=== PATIENT | female | born 1970 | race Caucasian/White ===

== ENCOUNTER 2025-01-03 02:07 | Day surgery (SDC) | payer OTHER, SELFPAY ==
[2024-12-26 15:07] VITALS: BMI 22.8
--- NOTE | 2024-12-26 15:25 | PC.NURSE ---
Report to the Outpatient Waiting Room, entrance under the green pavilion located off [facility], at time _0830 on date _01/03/25 . Planned Procedure Time: __1030 .? Time changes happen often and if your time is changed the preop area will call you the afternoon before. - You and your visitor will be asked to self-screen and do not enter if you have any COVID symptoms. Please call surgeon if you need to reschedule. - A mask is optional within the hospital at this time. Patients may have clear liquids (water, carbonated beverages, clear teas, apple juice) until 3 hours prior to surgery with a maximum of 20 ounces. - No food from midnight until time of surgery and no smoking, or chewing tobacco (or any form of nicotine). No chewing gum, candy or mints. - Infants may have breast milk until 4 hours before surgery, infant formula 6 hours prior to surgery. - Children will be allowed to drink immediately following surgery.? If applicable, please bring a bottle or sippy cup to assist with drinking. Juice, water, soda, and popsicles are readily available.? For infants on formula, please bring formula the day of surgery.? Pacifiers are allowed. Take only the following medications with a SIP of water on the morning of surgery: ___Tramadol, and Gabapentin DO NOT STOP ANY OF YOUR OTHER PRESCRIPTION MEDICATIONS PRIOR TO SURGERY EXCEPT THE FOLLOWING Hold all vitamins and supplements for 3 days per anesthesiologist. Medications to discontinue per physician Date to take last dose Please no make-up, nail mongolian, hairspray, perfume, deodorant, or body powder the day of surgery.? No jewelry (including any body piercings) or valuables the day of surgery, leave them at home.? Please take a shower or bath the night before, or the morning of, surgery with an antibacterial soap.? Wear comfortable, loose fitting clothing.? Children are encouraged to wear pajamas. - Jewelry must be removed prior to entering the operating room.? Rings and piercings that are not removed may be cut off. - The hospital will not accept responsibility for valuables.? - Please leave all valuables, including medications, at home the day of surgery. If you are going home after surgery, a licensed front loader residential driver must drive you home.? - NO public transportation without another adult if you receive anesthesia. - We recommend that an adult stay with you for 24 hours following discharge. - We also recommend that you do not drive, make important decision, drink alcoholic beverages, or take any drugs that were not prescribed by your health care provider for at least 24 hours after your discharge time. For Pediatric surgeries, we recommend two adults accompany the child home. Follow any additional instructions given to you from your surgeon. Telephone instructions given to _Ling and asked if any additional questions and then verbalized understanding. Patient advised to call surgeon office or pre surgery nurse liaison [phone] if any additional questions.
[2025-01-03] VITALS (14 sets, daily range): BP systolic 108–148; BP diastolic 45–83; PULSE 57–103; RESP 13–20; TEMP 35.8–36.3; O2SAT 95–100
--- OUTSIDE RECORDS SUMMARY | 2025-01-03 02:11 | XMS_ITS | Referral Summary ---
Author Organization [facility] Address [address] [place] [address] Care Team Providers Care Pattern Grader Supervisor Name Role Phone Leif DESIR MD, Law Ramos Primary Care Provider Allergies Active Allergy Reactions Criticality Noted Date Comments Celecoxib Anaphylaxis High 07/29/2021 Iodine Hives Medium 05/28/2022 Iodine And Iodide Containing Products Hives Medium 05/29/2020 Latex Anaphylaxis,Swelling High 04/30/2018 Prednisone Sweating,Agitation,A nxiety, Dizziness,Palpitations Low 02/06/2019 Shellfish Hives High 02/07/2020 Medications acetaminophen (TYLENOL) 500 mg tablet 8 Active traMADoL (ULTRAM) 50 mg tablet 0 Active zolpidem (AMBIEN) 10 mg tablet TK 1 T PO QHS PRF RN UNIT MANAGER 0 Active gabapentin (NEURONTIN) 400 mg capsule 2 Active ALPRAZolam (XANAX) 0.25 mg tablet 2 Active amoxicillin 500 mg tablet TAKE 4 TABLETS BY MOUTH 1 HOUR PRIOR TO APPOINTMENT 2 Active atorvastatin (LIPITOR) 10 mg tablet 2 Active clindamycin (CLEOCIN) 300 mg capsule TAKE ONE CAPSULE BY MOUTH FOUR TIMES DAILY FOR 7 DAYS 2 Active estradioL (VIVELLE-DOT) 0.1 mg/24 hr APPLY 1 PATCH TOPICALLY TO THE SKIN 2 TIMES A WEEK DIRECTED [address] (PROTONIX) 20 mg EC tablet Take 1 tablet (20 mg total) by mouth daily Active lidocaine (LIDODERM) 5 % Place 1 patch on the skin daily for 14 days Remove & discard patch within 12 hours or as directed by MD. 14 patch 4 Active methocarbamoL (ROBAXIN) 500 mg tablet Take 1 tablet (500 mg total) by mouth 2 (two) times a day 20 tablet 4 Active HYDROcodone-lilo taminophen (NORCO) 5-325 mg per tabletIndicatio ns:Pain Take 1 tablet by mouth every 6 (six) hours as needed for pain for up to 6 doses 6 tablet 4 Active Active Problems Problem Noted Date Diagnosed Date Mixed hyperlipidemia 08/11/2022 Family history of ischemic heart disease 023 Hematoma 08/11/2022 Left leg pain 10/21/2021 Disc displacement, lumbar 10/20/2021 Fixation hardware in spine 10/20/2021 History of total hip arthroplasty 10/20/2021 Hip pain 10/20/2021 Family history of Quijano syndrome 06/22/2020 Family history of breast cancer 06/22/2020 Personal history of colonic polyps 06/20/2020 Overview (06/20/2020): Added automatically from request for surgery [id number] Encounter for screening colonoscopy 06/20/2020 Overview (06/20/2020): Added automatically from request for surgery [id number] Bronchitis 07/19/2018 Low back pain 02/16/2018 Encounter for other orthopedic aftercare 018 Arthralgia of shoulder 03/07/2011 Arthralgia of elbow 03/07/2011 Immunizations Immunization Administration Dates Next Due H1N1 Inj 04/04/2009 Influenza, Quadrivalent, Rec ombinant, Egg Free, Preservative Free, Intramuscular 03/30/2020 Influenza, Quadrivalent, Spl it, Preservative Free, Intramuscular 03/29/2019,04/12/2018 Influenza, Trivalent, IM (MDV) 03/23/2019,2017 TD Preservative Free 12/05/2008 Social History Tobacco Use Types Packs/Day Years Used Date Smoking Tobacco: Former Cigarettes Smokeless Tobacco: Never Tobacco Cessation:Counseling Given: Not Answered Alcohol Use Standard Drinks/Week Comments Yes 0 (1 standard drink = 0.6 oz pur e alcohol) RARE Personal Safety Answer Date Recorded Have you ever been in or are you currently in a harmful physical or emotional relationship or is someone making you feel afraid or unsafe? Denies 01/05/2024 Comments No Sex and Gender Information Value Date Recorded Sex Assigned at Not on file Legal Sex Female 10:33 PM ANIMAL TRAINER Gender Identity Female 06/18/2020 7:08 PM ANIMAL TRAINER Sexual Orientation Not on file Last Filed Vital Signs Vital Sign Reading Time Taken Comments Blood Pressure 126/66 01/05/2024 12:15 PM CDT Pulse 80 01/05/2024 12:15 PM CDT Temperature 36.8 C (98.3 F) 01/05/2024 12:15 PM CDT Respiratory Rate 18 01/05/2024 12:15 PM CDT Oxygen Saturation 100% 01/05/2024 12:15 PM CDT Inhaled Oxygen Concentration - - Weight 59 kg (130 lb) 01/05/2024 9:26 AM CDT Height 160 cm (5' 3) 01/05/2024 9:26 AM CDT Body Mass Index 23.03 01/05/2024 9:26 AM CDT Plan of Treatment Not on file Insurance * Guarantor: Ling Olguin Account Type Relation to Patient Date of Phone Billing Address Personal/Family Self 1970 [address] [place] [address] [employer] [employer] * Guarantor: Sharif Ling Woo Account Type Relation to Patient Date of Phone Billing Address Personal/Family Self 1970 [id number] [place] [address] [facility] * Guarantor: Rosa Olguinleroy Woo Account Type Relation to Patient Date of Phone Billing Address Personal/Family Self 1970 [id number] [place] [address] Care Teams Pattern Grader Supervisor Relationship Specialty Start Date End Date Law Yadav II, MD [address] [place] [address] PCP - General 11/27/18
--- OUTSIDE RECORDS SUMMARY | 2025-01-03 02:11 | XMS_ITS | Clinical Summary ---
Author Organization [facility] Address [address] [place] [address] Phone Care Team Providers Care Ambulette Driver Name Role Phone Leif Parker Unavailable [phone] Leif Parker Primary Care Provider Allergies Active Allergy Reactions Criticality Noted Date Comments Avocado Anaphylaxis High 12/31/2022 Banana Anaphylaxis High 12/31/2022 Celecoxib Anaphylaxis 07/29/2021 Duloxetine Other (see Comments) Medium 06/19/2018 Iodine Hives High 05/29/2020 Latex Anaphylaxis 09/17/2016 Levofloxacin Other (see Comments) Medium 12/31/2022 Shellfish Allergy Hives 04/20/2021 Medications zolpidem (AMBIEN) 10 MG Tablet Take 1 Tab by mouth as needed. 2 8 Active traMADol (ULTRAM) 50 MG Tablet Patient takes 2 in morning and 2 in the afternoon 3 9 Active estradiol (VIVELLE) 0.1 MG/24HR PATCH BIWEEKLY APPLY 1 PATCH TOPICALLY TO THE SKIN 2 TIMES A WEEK DIRECTED 2 Active gabapentin (NEURONTIN) 300 MG Capsule 4 Active predniSONE (DELTASONE) 20 MG Tablet Take 2 tabs daily for 5 days. Intake 1 tab daily for 5 days. 4 Active Tretinoin 0.05 % Gel APPLY TOPICALLY NIGHTLY 0 Active EPINEPHrine (EPIPEN) 0.3 MG/0.3ML Solution Auto-injector 1 Syringe by Intramuscular route. 2 Active ALPRAZolam (XANAX) 0.25 MG Tablet Take 0.25 mg by mouth. 2 Active acetaminophen (TYLENOL) 500 MG Tablet Take 500 mg by mouth. 8 Active B Complex Vitamins (B COMPLEX PO) Take by mouth daily. Active VITAMIN D PO Take by mouth daily. Active Active Problems Problem Noted Date Diagnosed Date Hyperlipidemia 08/02/2022 Chronic back pain 08/02/2022 Chest pain 08/01/2022 Bronchitis 07/19/2018 Encounters Date Type Department Care Team Description 10/26/2024 8:55 AM CDT Urgent Care Visit [facility] [address] [place] [address] Jaycob Isabel, LARISSA Acute maxillary sinusitis, recurrence not specified (Primary Dx) Discharge Disposition: Discharged to home or Selfcare 10/26/2024 Travel from Last 3 Months Immunizations Immunization Administration Dates Next Due Influenza Vaccine greater than 3 yrs 03/23/2019 Influenza Vaccine, Quadrivalent, PF 03/29/2019 Influenza, Recombinant, Quadrivalent,injectable, Pf 03/30/2020 Influenza, Seasonal, Injectable, Undefined 04/08 Novel [id number], Injectable 04/04/2009 Td Vaccine (preservative free) 11/20/2023,2008 Family History Medical History Relation Name Comments Coronary Artery Disease Brother Cancer Mother Diabetes Natural Child Relation Name Status Comments Brother Mother Natural Child Social History Tobacco Use Types Packs/Day Years Used Date Smoking Tobacco: Never Smokeless Tobacco: Never Tobacco Cessation:Counseling Given: Not Answered Alcohol Use Standard Drinks/Week Comments Never 0 (1 standard drink = 0.6 oz pur e alcohol) Sexually Active Control Partners Comments Not Currently Comments No Sex and Gender Information Value Date Recorded Sex Assigned at Not on file Legal Sex Female 5:56 PM CDT Gender Identity Not on file Sexual Orientation Not on file Last Filed Vital Signs Vital Sign Reading Time Taken Comments Blood Pressure 128/68 10/26/2024 9:28 AM CDT Pulse 64 10/26/2024 9:28 AM CDT Temperature 36.5 C (97.7 F) 10/26/2024 9:28 AM CDT Respiratory Rate 12 10/26/2024 9:28 AM CDT Oxygen Saturation 99% 10/26/2024 9:28 AM CDT Inhaled Oxygen Concentration - - Weight 58.1 kg (128 lb) 12/01/2023 6:23 PM CDT Height 160 cm (5' 3) 11/22/2023 5:56 PM CDT Body Mass Index 22.67 11/22/2023 5:56 PM CDT Plan of Treatment Health Maintenance Due Date Last Done Comments Hepatitis C Virus (HCV) Screening 1970 TdaP Immunization 1970 Hepatitis B Immunization (1 of 3 - 19+ 3-dose series) 01/12/1987 Cologuard 01/12/2013 Colonoscopy 01/12/2013 Colorectal Cancer Screening 01/12/2013 Immunochemical Fecal Occult Blood 01/12/2013 Pneumococcal Immunization (50+ years) (1 of 1 - PCV) 01/12/2018 Zoster Immunization (1 of 2) 01/12/2018 SARS-COV-2 Immunization ( - season) 2024 Mammogram 09/07/2024 09/08/2023, 01/06/2018 Influenza Immunization (#1) 02/06/202503/09, 03/29/2019, 03/23/2019, Additional history exists Respiratory Syncytial Virus (RSV) Immunization (Adult) (1 - 1-dose 75+ series) 01/12/2043 DTaP/Tdap/Td Immunization Discontinued 11/20/2023, Human Papillomavirus (HPV) Immunization Aged Out No longer eligible based on patient's age to complete this topic Meningococcal Immunization (ACWY) Aged Out No longer eligible based on patient's age to complete this topic Rotavirus Immunization Aged Out No lo nger eligible based on patient's age to complete this topic Medical Devices Implanted Type Area Glaze Maker Device Identifier Shelf Expiration Date Model / Serial / Lot Device Clsr 70cm 6fr Angio-Seal Vip .035in Vasc Collagen Valuelink Gw Insertion Timo Cm - [id number] Implanted:Qty: 1 on 08/04/2022 by Diane Rabago MD at [facility] IMPLANT [employer] 01/05/2023 [id number] / [id number] / [id number] Insurance * Guarantor: Ling Olguin Account Type Relation to Patient Date of Phone Billing Address Personal/Family Self 1970 [id number] [place] [address] [facility] * Guarantor: Ling Olguin Account Type Relation to Patient Date of Phone Billing Address Personal/Family Self 1970 [id number] [place] [address] Advance Directives * Full Code (Latest Code Status on File) Date Activated Date Inactivated Comments 08/01/2022 7:20 PM 08/04/2022 8:23 PM CPR-Full Prince atment: FULL ARREST: Attempt Resuscitation/CPR wit intubation and mechanical ventilation. PRE-ARREST: Use entire range of life support measures to stabilize the patient. Care Teams Ambulette Driver Relationship Specialty [place] [address] [place] [address] PCP - General Physician Steel Worker 06/12/22 [place] [address] [place] [address] Physician Steel Worker 04/30/18
--- OUTSIDE RECORDS SUMMARY | 2025-01-03 02:11 | XMS_ITS | Encounter Summary ---
Author Organization [facility] Address [address] [place] [address] Care Team Providers Care Cryptological Technician Name Role Phone Leif DESIR MD, Law White Primary Care Provider + Encounter Details Date Type Department Care Team (Late st Contact Info) Description 11/28/2024 Results Follow-Up [facility]'s [facility] Clinical Support [address] [facility] [address] [place] [address] Manda Brito, BANK ACCOUNTANT [address] [address] MAMMO 3D EFRAIN DIAGNOSTIC IMPL BILAT W OR WO CAD Social History Tobacco Use Types Packs/Day Years Used Date Smoking Tobacco: Former Cigarettes Smokeless Tobacco: Never Alcohol Use Standard Drinks/Week Comments No 0 (1 standard drink = 0.6 oz pur e alcohol) Comments No Sex and Gender Information Value Date Recorded Sex Assigned at Not on file Legal Sex Female 8:56 AM ELECTROMYOGRAPHIC TECHNICIAN Gender Identity Not on file Sexual Orientation Not on file 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
--- OUTSIDE RECORDS SUMMARY | 2025-01-03 02:11 | XMS_ITS | Clinical Summary ---
Author Organization [employer] [facility] Address [address] [place], [place] [address] Care Team Providers Care Trolley Wire Installer Name Role Phone Leif DESIR MD, Law White Primary Care Provider + Allergies Active Allergy Reactions Criticality Noted Date Comments Avocado Anaphylaxis High 12/31/2022 Banana Anaphylaxis High 12/31/2022 Celecoxib Hives High Duloxetine Other (See Comments) Medium 06/19/2018 Iodine And Iodide Containing Products Hives High 05/29/2020 Latex Other (See Comments) Levofloxacin Hypertension Medium Prednisone Unknown 02/06/2019 Shellfish Containing Products Hives High 2018 Shellfish Derived Itching Low Medications zolpidem (AMBIEN) 10 mg tablet TK 1 T PO QHS 2 7 Active traMADol (ULTRAM) 50 mg tabletIndicati ons:Chronic pelvic pain in female Take 1 Tablet (50 mg) by mouth daily. 28 Tablet 9 Active gabapentin (NEURONTIN) 400 mg capsule Take 400 mg by mouth 4 times daily. Active acetaminophen (TYLENOL) 500 mg tablet Take 500 mg by mouth 2 times daily. Active IBUPROFEN ORAL Take by mouth. Active Tretinoin 0.05 % Gel Apply 0.05 Units to affected area daily at bedtime. 0 Active ALPRAZolam (XANAX) 0.25 mg tablet Take 1 Tablet by mouth 3 times daily as needed. 2 Active ergocalciferol , vitamin D2, (VITAMIN D ORAL) Take 1 Tablet by mouth daily. Active OTHER daily. tumeric Activ e vitamin B complex (VITAMINS B COMPLEX ORAL) Take 1 Tablet by mouth daily. Active conjugated estrogens (Premarin) 0.625 mg/gram vaginal creamIndicatio ns:Atrophic vaginitis 1/4 applicator per vagina qhs x 7 nights, then 3 times a week x 3 weeks, then twice weekly 42.5 Gram 3 5 Active estradioL (CLIMARA) 0.1 mg/24 hr patch Apply 1 Patch to skin as directed every 7 days. 24 Patch 2 5 Active estradioL (CLIMARA) 0.1 mg/24 hr patchIndicatio ns:Menopausal symptoms Apply 1 Patch to skin as directed every 7 days. 12 Patch 3 5 12/22/19 25 Discontinu ed(Alterna te therapy prescribed ) Active Problems Patient Care Coordination No te Formatting of this note migh t be different from the original. 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 Problem Noted Date Diagnosed Date Atrophic vaginitis 05/23/2021 Menopause 05/23/2021 Chronic left hip pain 01/11/2019 Chronic fatigue 12/24/2017 Chronic pelvic pain in female 06/04/2017 Overview (06/04/2017): Added automatically from request for surgery [id number] Resolved Problems Problem Noted Date Diagnosed Date Resolved Date Preop examination 10/27/2018 11/24/2018 Menopausal symptom 08/11/2018 5 Women's annual routine gynec ological examination 12/24/2017 08/11/2018 Ovarian mass 06/04/2017 09/13/2018 Overview (06/04/2017): Added automatically from request for surgery [id number] Pelvic adhesions 06/04/2017 11/24/2018 Overview (06/04/2017): Added automatically from request for surgery [id number] Pelvic pain in female 05/18/20172018 Encounters Date Type Department Care Team Description 12/21/2024 External Device Data STL ABSTRACTION Provider, Abstract 12/21/2024 Telephone [facility] Clinical Support [address] [place] [phone] Charley Liz, urban anthropologist Question 12/20/2024 External Device Data STL ABSTRACTION Provider, Abstract 12/07/[address] 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 - [address] [facility] [address] [facility] [address] [place] [phone] Yusra Duke MD 11/28/2024 9:23 AM CDT - 11/28/2024 11:59 PM CDT Hospital Encounter [facility] [place] [address] [place] [phone] Yusra Duke MD Discharge Disposition: Home or Self Care 11/28/2024 Results Follow-Up [facility] Clinical Support [id number] [place] [address] [address] [place] [phone] Manda Brito, BERNARD MAMMO 3D EFRAIN DIAGNOSTIC IMPL BILAT W OR WO CAD 11/22/2024 External Device Data STL ABSTRACTION Provider, Abstract 11/21/2024 Telephone [facility] Clinical Support [address] [facility] [address] [place] [phone] Yadira Bryant RN Needs Orders Written; Breast pain 11/08/2024 External Device Data STL ABSTRACTION Provider, Abstract 11/07/2024 9:40 AM CDT Office Visit 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 - [address] [facility] [address] [facility] [address] [place] [phone] Yusra Duke MD Women's annual routine gynecological examination (Primary Dx); Atrophic vaginitis; Menopausal symptoms; Encounter for screening mammogram for breast cancer; Colon cancer screening from Last 3 Months Family History Medical History Relation Name Comments High Cholesterol Father Hypertension Father Stroke Father Cancer Mother Breast Cancer Paternal Aunt Breast Cancer Paternal Grandmother Colon Cancer Neg Hx Ovarian Cancer Neg Hx Relation Name Status Comments Father Mother cervical cancer - spread to uterus and caused age 49 Paternal Aunt Paternal Grandmother Social History Tobacco Use Types Packs/Day Years Used Date Smoking Tobacco: Former Cigarettes Smokeless Tobacco: Never Tobacco Cessation:Counseling Given: Not Answered Alcohol Use Standard Drinks/Week Comments No 0 (1 standard drink = 0.6 oz pur e alcohol) Comments No Sex and Gender Information Value Date Recorded Sex Assigned at Not on file Legal Sex Female 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 Gender Identity Not on file Sexual Orientation Not on file 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 Not on file Not on file Last Filed Vital Signs Vital Sign Reading Time Taken Comments Blood Pressure 110/76 11/07/2024 10:00 AM CDT Pulse 69 11/07/2024 10:00 AM CDT Temperature 36.1 C (97 F) 12/19/2020 7:56 AM CDT Respiratory Rate 16 12/19/2020 8:10 AM CDT Oxygen Saturation 99% 11/07/2024 10:00 AM CDT Inhaled Oxygen Concentration - - Weight 56.7 kg (125 lb) 11/07/2024 10:00 AM CDT Height 157.5 cm (5' 2) 11/07/2024 10:00 AM CDT Body Mass Index 22.86 11/07/2024 10:00 AM CDT Plan of Treatment Health Maintenance Due Date Last Done Comments HEPATITIS B VACCINES (1 of 3 - 19+ 3-dose series) 01/12/1987 FIT-DNA Q 3 years 01/12/2013 FIT/FOBT Q 1 year 01/12/2013 Flex Sig/CT Colonography Q 5 years 01/12/2013 ZOSTER VACCINE (1 of 2) 01/12/2018 DTAP/TDAP/TD VACCINES (1 - Tdap) 11/21/2023 11/20/19 24, 12/05/2008 BREAST CANCER SCREENING 09/07/2024 09/08/19 24, 06/04/2021, 04/01/2019, Additional history exists INFLUENZA VACCINE (#1) 2025 0, 03/29/2019, 03/23/2019, Additional history exists COLORECTAL SCREENING 12/19/2030 12/19/2020, 12/20/19 Colorectal Cancer Screening 12/19/2030 Procedures Procedure Name Priority Date/Time Associated Diagnosis Comments MAMMO 3D EFRAIN DIAGNOSTIC IMPL BILAT W OR WO CAD Routine 11/28/2024 10:03 AM CDT Soreness breast History of breast implant MAMMO 3D EFRAIN DIAGNOSTIC BILAT W OR WO CAD Routine 09/08/2023 2:44 PM CDT COLONOSCOPY REPORT 12/19/2020 7: 54 AM CDT from Last 3 Months or Most Recently Relevant to Health Maintenance Results * MAMMO 3D EFRAIN DIAGNOSTIC IMPL BILAT W OR WO CAD (11/28/2024 10:03 AM CDT) Anatomical Region Laterality Modality Breast Bilateral Mammography 11/28/2024 10:0 5 AM CDT Impressions 11/28/2024 10:11 AM CDT IMPRESSION: 1. No suspicious mammographic abnormality in either breast. RECOMMENDATIONS: Continue annual screening mammography. DICTATION LOCATION: [facility] Narrative 11/28/2024 10:11 AM CDT BILATERAL DIGITAL DIAGNOSTIC MAMMOGRAM WITH TOMOSYNTHESIS DATE: 11/28/2024 10:06 AM HISTORY: Left breast pain. COMPARISON(S): 2023 BREAST COMPOSITION: The breasts are heterogeneously dense, which may obscure small masses. FINDINGS: Mammogram views include CC and MLO and implant displaced CC and MLO 3-D images. There is no suspicious mammographic abnormality in either breast. Results conveyed to the patient at the time of imaging. OVERALL FINAL ASSESSMENT: BI-RADS CATEGORY 2: Benign findings. us Yusra Duke MD MAMMO ORDERABLES Final Result * MAMMO 3D EFRAIN DIAGNOSTIC BILAT W OR WO CAD (09/08/2023 2:44 PM CDT) Anatomical Region Laterality Modality Breast Bilateral Mammography us Yusra Duke MD MAMMO ORDERABLES Final Result * COLONOSCOPY REPORT (12/19/2020 7:54 AM CDT) Narrative Procedure Note Linh Ron DO - 12/19/2020 7:53 AM CDT [facility] Endoscopy Patient Name: Ling Olguin Procedure Date: 12/19/2020 Date of : 1970 Attending MD: Linh Ron MD Procedure: Colonoscopy Indications: Screening for colorectal malignant neoplasm, Last colonoscopy was done 15 years ago Providers: Linh Ron MD Referring MD: Law Yadav Ii Medicines: Monitored Anesthesia Care Complications: No immediate complications. Procedure: Informed consent was obtained for the procedure, including moderate sedation after risks were discussed. Based on the pre-procedure assessment, including review of the patient's medical history, medications, allergies, and review of systems, the patient was deemed to be an appropriate candidate for sedation. A timeout was performed. Continuous ECG monitoring, pulse oximetry, blood pressure monitoring, and direct observation were performed. The Colonoscope was introduced through the anus and advanced to the cecum, identified by appendiceal orifice and ileocecal valve. The colonoscopy was performed without difficulty. The patient tolerated the procedure well. The quality of the bowel preparation was good. Estimated Blood Loss: Estimated blood loss: none. Estimated blood loss was minimal. Findings: The perianal examination was normal. A few diverticula were found in the sigmoid colon and descending colon. No additional abnormalities were found on retroflexion. Impression: - Diverticulosis in the sigmoid colon and in the descending colon. - No specimens collected. Recommendation: - High fiber diet. - Repeat colonoscopy in 10 years for screening purposes. Linh Ron MD 12/19/2020 7:53:19 AM This report has been signed electronically. Number of Addenda: [address]; [place] [address] Linh Ron DO GI PROCEDURE ORDERABLES Fin al Result from Last 3 Months or Most Recently Relevant to Health Maintenance Insurance BCBS OUT OF STATE Advance Directives For more information, please contact: [phone] * Full Code (Latest Code Status on File) Date Activated Date Inactivated Comments 12/19/2020 7:06 AM 12/19/2020 10:22 AM Care Teams Trolley Wire Installer Relationship Specialty Start Date End Date Law Yadav II, MD [address] [place] [phone] PCP - General Family Practice 09/13/18
--- OUTSIDE RECORDS SUMMARY | 2025-01-03 02:11 | XMS_ITS | Clinical Summary ---
Author Organization [facility] Address [address] [place] [address] [place] [address] Care Team Providers Care Reed Press Feeder Name Role Phone Leif DESIR MD, Law White Primary Care Provider + Source Comments [facility] [employer],non-owned Affiliates and Associated Physician Practices is amultiple site organization consisting of ambulatory clinics and hospital sitesin [place], [place], [place] and [place]. This disclosure is being madepursuant to the Care Everywhere program and may not contain all information available regarding this patient. Last updated 18.[facility] [employer] Allergies Active Allergy Reactions Criticality Noted Date Comments Avocado Anaphylaxis High 12/31/2022 Banana Anaphylaxis High 12/31/2022 Celecoxib Anaphylaxis,Urticaria High 07/29/2021 Duloxetine Headache Medium 06/19/2018 Food Anaphylaxis High 12/31/2022 Iodine Urticaria High 05/29/2020 Latex Anaphylaxis,Unknown,Other,Swelling High 0 09/17/2016 Levofloxacin Elevated Blood Pressure,Other Medium 12/07 Shellfish Urticaria High 11/05/2018 Shellfish Allergy Itching Low 12/31/2022 Medications * Be aware that medications may not be up to date on this document. Alwaysverify current medications with the patient. Multiple Vitamins-Minera ls (PRESERVISION AREDS 2 PO) Active Lutein-Zeaxanth in 15-4.75 MG CAPS Active loteprednol (Lotemax) 0.5 % ophthalmic suspension Instill 1 (one) drop into both eyes 2 times daily twice a day for 10 days then once a day for 10 days then stop 15 mL 11/05/2022 Active ALPRAZolam (Xanax) 0.25 MG tablet 12/29/2022 Active estradiol (Vivelle-Dot) 0.1 MG/24HR patch 12/30/2022 Active gabapentin (Neurontin) 100 MG capsule 11/30/2022 Active rOPINIRole (Requip) 0.25 MG tablet 12/25/2022 Active traMADol (Ultram) 50 MG tablet 12/24/2022 Active zolpidem (Ambien) 10 MG tablet 12/27/2022 Active Active Problems Problem Noted Date Diagnosed Date RLS (restless legs syndrome) 12/24/202206/2022 Overview (01/06/2023): Last Assessment & Plan: Requip 0.25 mg p.o. q.h.s. Left lumbar radiculopathy 11/05/20222022 Overview (11/05/2022): Last Assessment & Plan: Increase gabapentin to 400 mg 2 capsules 3 times per day. Mixed hyperlipidemia 08/11/2022 11/05/2022 Latex allergy 11/21/2021 01/06/2023 Overview (01/06/2023): Last Assessment & Plan: RF epi pen Fixation hardware in spine 10/20/202111/05 History of total hip arthroplasty 10/20/2021 11/05/2022 Overview (11/05/2022): Last Assessment & Plan: Complicated by chronic pain. Takes tramadol with improvement. Compliant. No problems with abuse. Will provide Tramadol refills per PCP Dr Law Yadav Will get her a second opinion however we have discussed that her pain may never fully resolve. Continue to stay thin and active. Disc displacement, lumbar 10/20/20212022 Personal history of colonic polyps 06/20/2020 Overview (03/09/2024): Added automatically from request for surgery [id number] [employer]MO Replacement Utility 03/09/2024 Chronic back pain 09/23/2018 11/05/2022 Overview (11/05/2022): Chronic low back pain with fusion at 2 levels 7 months ago. Has completed physical therapy. Appears to be complicated by chronic pelvic pain and possible adhesions. Last Assessment & Plan: Keep appointment with fine arts instructor and with neurosurgeon. Recommended a walking program. Menopausal symptom 08/11/2018 01/06/2023 Bronchitis 07/19/2018 01/06/2023 Acne 06/22/2018 01/06/2023 Chronic insomnia 06/22/2018 01/06/2023 Overview (01/06/2023): We discussed methods to improve sleep including but not limited to going to bed same time every night, avoiding TV/screen time 1 hr prior to sleep, avoidance of afternoon/evening caffeine. We discussed indications for sleep medications including controlled substances. We discussed medication compliance, random drug screening, avoidance of taking other's or sharing meds, using same pharmacy, no early refills and required routine office visits every 90 day. Last Assessment & Plan: Continue Ambien 10 mg p.o. q.h.s. Generalized anxiety disorder 06/22/201806/2022 Overview (01/06/2023): We discussed treatment options including benzos. Discussed risks/benefits of benzo therapy. We discussed importance of medication compliance, no early refills, sharing of medications, taking medications from others, and one pharmacy for all prescriptions. We discussed random drug screening and discontinuation of meds if any problems or drug screen abnormality Last Assessment & Plan: Continue Xanax p.r.n. Chronic fatigue 12/24/2017 01/06/2023 Arthralgia of shoulder 03/07/2011 3 Overview (11/05/2022): Last Assessment & Plan: Unchanged. Wants to consider dose reduction of neurontin due to brain fog. Dose reduce to 300 mg PO TID. 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 Gender Identity Not on file Sexual Orientation Not on file Plan of Treatment Health Maintenance Due Date Last Done Comments COLOGUARD (AGES 45-75) - COLON CA SCREENING 1970 COLON MONITORING 1970 COLONOSCOPY - COLON CA SCREENING 1970 CT COLONOGRAPHY - COLON CA SCREENING 1970 Colorectal Cancer Screening 1970 FIT - COLON CA SCREENING 1970 FLEX SIG - COLON CA SCREENING 1970 MAMMOGRAM 1970 HIV SCREENING 01/12/1983 HEPATITIS C SCREENING 01/08/1986 DTAP/TDAP/TD VACCINES (1 - Tdap) 01/12/1987 HEPATITIS B VACCINE (1 of 3 - 19+ 3-dose series) 01/12/1987 PAP SMEAR 01/12/1989 PNEUMOCOCCAL VACCINE 50+ (1 of 1 - PCV) 01/12/2018 ZOSTER VACCINE (1 of 2) 01/12/2018 COVID-19 VACCINE (1 - season) 2024 DEPRESSION SCREENING 06/08/2024 INFLUENZA VACCINE (#1) 2025 0, 03/29/2019, 03/23/2019, Additional history exists LIPID TESTING 08/03/2027 08/03/2022, 08/01/2022 HIB VACCINE Aged Out No longer eligi ble based on patient's age to complete this topic HPV VACCINE Aged Out No longer eligi ble based on patient's age to complete this topic MENINGOCOCCAL (Group B) VACCINE SHARED DECISION-MAKING Aged Out No longer eligible based on patient's age to complete this topic MENINGOCOCCAL GROUPS A/C/Y/W VACCINE Aged Out No longer eligible based on patient's age to complete this topic Insurance AETNA AETNA Care Teams Reed Press Feeder Relationship Specialty Start Date End Date Law Yadav II, MD [address] [place], [place] [phone] PCP - General 07/30/22
--- OUTSIDE RECORDS SUMMARY | 2025-01-03 02:11 | XMS_ITS | Continuity of Care Document ---
Author Organization [facility] Address [address] [place] [address] Phone Care Team Providers Care Customer Operations Associate Name Role Phone Matias Keller MD Unavailable Unavailable Allergies, Adverse Reactions, Alerts Substance Reaction Status Criticality latex swelling(not reported) Active No In formation hives(not reported)hives(not reported) Ac tive No Information Medications Medication Instructions Dosage Effective Dates (start - stop) Status Comments Ambien 10 mg tablet take 1 tablet by ora l route every day at bedtime 10 MG - Active gabapentin 400 mg capsule take 1 capsule by oral route 4 times every day 400 MG - Active tramadol 100 mg tablet - Active Tylenol Extra Strength 500 mg tablet take 2 tablet by oral route every 4 - 6 hours as needed not to exceed 8 tablets per 24hrs 1000 MG - Active Procedures Procedure Date OFFICE CONSULTATION Advance Directives Directive Yes / No Effective Date File Name No Information Encounters Encounter Description Practice Location Reason(s) For Visit Diagnoses Date Provider Providers Copied on Encounter [facility] , [address], [facility], [phone] [facility] Status post total hip replacement , leftHip pain Krishna Salcedo. [address] [facility] [address] [place], [place], [id number] . tel: [phone] [facility] , [address] [facility] [address], [facility], tel:[phone] [facility] Low back pain Krishna Salcedo. [address] [facility] [address] [place], [place], [id number] . tel: [phone] OFFICE CONSULTATION [facility] , [address], [place], [address], [place] [phone] [facility] LBP and left hip and leg pain (chief complaint) Status post total hip replacement , leftLow back painLeft leg pain Krishna Salcedo. [address], [place], [place], [id number] . tel: [phone] Referring Provider: Law White, [address] [place], [address]. tel:[phone] Family History Family Member Type Diagnosis Age At Onset mother Problem Cancer, Lung Cancer father Problem prostate cancer son Problem Diabetes mellitus father Problem hypertension father Problem stroke mother Problem malignant neoplasm of cervix uteri Payers Payer name Insurance type Covered libertarian ID Authoriza tion(s) [facility] Choice/Choice Plus E2 OT [id number] Social History Type Description Quantity Date Captured Comments Alcohol Use Details Unknown Caffeine Use Details Unknown Tobacco Use Status Smoking Status No Information Sex Female Chief Complaint And Reason For Visit No Information Reason For Referral Reason For Referral No Information History Of Present Illness Encounter Date Complaint History Of Prese nt Illness LBP and left hip and leg pain Functional Status Date Functional Assessmen t No Information Instructions Date Instruction Additional Infor mation No Information Assessments Type Assessment Date assessment Status post total hip replacemen t, left assessment Hip pain Patient Care Teams Name Effective Dates (start - stop) Status Members No Information
--- OUTSIDE RECORDS SUMMARY | 2025-01-03 02:11 | XMS_ITS ---
Author Name Auto Generated, Auto Generated Organization [facility] ice Address [address] [place] [address] Phone [phone] Care Team Providers Care Addiction Medicine Physician Name Role Phone Lorie Doyle Unavailable Fan Anglin Unavailable [phone] Functional Status No Results Mental Status No Results Allergies and Intolerances Name Onset Date Reaction Severity Latex (Allergy) ThuFeb 16 14:50:00 EDT 2017 Dermatiti s Moderate Shellfish (Allergy) ThuFeb 16 14:50:00 EDT 2017 Hives Severe Medications Medication Directions Start Date End Date ketorolac 30 mg/mL injection solution 30 mg VIAL (ML) Intravenous 1 Time Daily for 1 Day ThuFeb 17 01:00:00 EDT 2017Feb 17 01:00:00 EDT 2017 bisacodyl 10 mg rectal suppository 1 SUPPOSITORY, RECTAL Rectal 1 Time Daily for 1 Day constipation ThuFeb 16 01:00:00 EDT 2017Feb 17 00:59:00 EDT 2017 Dulcolax (bisacodyl) 10 mg rectal suppository 1 SUPPOSITORY, RECTAL Rectal Every 6 Hours for 1 Day constipation ThuFeb 17 01:00:00 EDT 2017Feb 17 01:00:00 ED2017 morphine 10 mg/10 mL (1 mg/mL) in 0.9 % sodium chloride IV syringe 5-10mg SYRINGE (ML) Intramuscular PRN Every 4 Hours pain ThuFeb 16 16:00:00 EDT 2017Feb 17 01:00:00 EDT 2017 HYDROcodone 5 mg-acetaminophen 325 mg tablet 1-2 tabs TABLET Oral PRN Every 4 Hours pain ThuFeb 16 16:00:00 EDT 2017Feb 17 01:00:00 EDT 2017 vancomycin 1 gram/100 mL in 0.9 % sodium chloride intravenous solution 1gm PLASTIC BAG, INJECTION (ML) Intravenous 2 Times Daily for 1 Day [facility] 16:00:00 EDT 2017 Sep 12 :00:00 EDT 2017 Pepcid 20 mg tablet 1 tablet TABLET Oral 2 Times Daily for 1 Day acid reflux [facility] 16:00:00 EDT 2017 Sep 12 :00:00 EDT 2017 Tylenol Extra Strength 500 mg tablet 2 tabs TABLET Oral PRN Every 6 Hours elevated temp [facility] 16:00:00 EDT 2017 [facility] Sep 12 :00:00 EDT 2017 Benadryl 25 mg capsule 2 tabs CAPSULE Or al PRN Every 6 Hours as needed for itching. [facility] 16:00:00 EDT 2017 Sep 12 :00:00 EDT 2017 Zofran 2 mg/mL intravenous solution 4mg VIAL (ML) Intravenous PRN Every 4 Hours nausea [facility] 16:00:00 EDT 2017 [facility] Sep 12 :00:00 EDT 2017 Flexeril 10 mg tablet 1 tab TABLET Oral PRN 3 Times Daily spasms [facility] 16:00:00 EDT 2017 [facility] Sep 12 :00:00 EDT 2017 Milk of Magnesia 400 mg/5 mL oral suspension 30cc SUSPENSION, ORAL (FINAL DOSE FORM) Oral PRN Hour Of Sleep constipation [facility] 16:00:00 EDT 2017 [facility] Sep 12 :00:00 EDT 2017 Problems Active Concerns * Encounter for other orthopedic aftercare* Code: * Start Date: ThuFeb 16:00:00 EDT 2017 * End Date: * Text: * Low back pain* Code: * Start Date: ThuFeb 16:00:00 EDT 2017 * End Date: * Text: Reason for Referral Past Medical History
--- OUTSIDE RECORDS SUMMARY | 2025-01-03 02:11 | XMS_ITS | Clinical Summary ---
Author Organization [facility] Address [address] [place] [address] Care Team Providers Care Clinic Lpn Name Role Phone Leif DESIR MD, Law [...] tablet TK 1 T PO QHS PRF NURSERYPERSON 0 Active gabapentin (NEURONTIN) 400 mg capsule [...] (06/20/2020): Added automatically from request for surgery [id number] Encounter for screening colonoscopy 06/20/2020 Overview (06/20/2020): Added automatically from request for surgery [id number] Bronchitis 07/19/2018 Low back pain 02/16/2018 Encounter for other orthopedic aftercare 018 Arthralgia of shoulder 03/07/2011 Arthralgia of elbow 03/07/2011 Immunizations Immunization Administration Dates Next Due H1N1 Inj 04/04/2009 Influenza, Quadrivalent, Rec ombinant, Egg Free, Preservative Free, Intramuscular 03/30/2020 Influenza, Quadrivalent, Spl it, Preservative Free, Intramuscular 03/29/2019,04/12/2018 Influenza, Trivalent, IM (MDV) 03/23/2019,2017 TD Preservative Free 12/05/2008 Surgical History Surgery Date Site/Laterality Comments REPLACEMENT DISC ANTERIOR LUMBAR SPINE 02/06/2018 - 03/07 ABDOMINAL SURGERY 11/06/2018 - 12/05/2018 TOTAL HIP ARTHROPLASTY 06/08/2019 - 07/08/2019 Left Family History Medical History Relation Name Comments Hypertension Father Stroke Father Cancer Mother Cancer Sister Diabetes Son Relation Name Status Comments Father Mother Sister Son Social History Tobacco Use Types Packs/Day Years [...] on file 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 Gender Identity Female 06/18/2020 7:08 PM WEATHER ANCHOR Sexual Orientation Not on file Obstetrics History Last Filed Vital Signs Vital Sign Reading [...] 01/05/2024 9:26 AM CDT Plan of Treatment Health Maintenance Due Date Last Done Comments Colon Cancer Screening-Colonoscopy 1970 Depression Screening 1970 Hepatitis C Screening 1970 Hepatitis B Screening 01/12/1986 Regular Well Visit/Exam 18-64 01/12/1986 Zoster Vaccine (1 of 2) 01/12/2018 Breast Cancer Screening-Mammogram 01/06/2019 01/06/2018 DTaP/Tdap/Td Vaccine (1 - Tdap) 11/21/2023 11/20/2023, 12/05/2008 Influenza Vaccine (#1) 2025 , 03/29/2019, 03/23/2019, Additional history exists Pneumococcal vaccine <65 Aged Out No longer eligible based on patient's age to complete this topic Insurance [facility] * Guarantor: Ling Olguin Account Type Relation to Patient Date of Phone Billing Address Personal/Family Self 1970 [address] [place] [address] [facility] * Guarantor: Ling Olguin Account Type Relation to Patient Date of Phone Billing Address Personal/Family Self 1970 [id number] [place] [address] [facility] Care Teams Clinic Lpn Relationship Specialty Start Date End Date Law Yadav II, MD [address] [place] [address] PCP - General 11/27/18
[2025-01-03] MEDS: TRANEXAMIC ACID 1,000MG/ISO100 1,000 MG/100 ML BAG 200 MG IVPB (09:30)
--- NOTE | 2025-01-03 09:54 | WPDHPUPDATE1 ---
History and Physical Update Update Date/Time: 01/03/25 09:54 History and Physical has been reviewed, including an updated exam of the patient. There are NO changes in the patient's condition. Risks, benefits, and alternatives have been discussed and questions answered. Patient agrees to proceed with procedure.
--- NOTE | 2025-01-03 09:54 | W.PM.PROC2 ---
Procedure Note - Detailed Date of Procedure 01/03/25 Pre-op Diagnosis bilateral implant rupture Post-op Diagnosis Same Procedure Performed Bilateral breast implant removal with mastopexy Surgeon Yan Roche MD Anesthesia General Findings Inverted T Superior pedicle Old implants: Description of Procedure She is here today for the above. Previously and again today the risks, benefits, alternatives were discussed in extensive detail. I wanted her to be very realistic about the risks involved as well as expectations. Again today while marking we discussed the complexity of removal / mastopexy and need for revision procedures in the future. We also discussed how her previous mastopexy increases risks of complications which was outlined in detail. She has a significant IMF discrepancy which was outlined and explained the complexity of this as well. We discussed aftercare and what to monitor for. Made sure answered all of her questions to her satisfaction today and consent was obtained. Marked in the preoperative holding area with her verification. The patient was taken to the operating room placed supine on the operating table. Anesthesia was provided by anesthesiology. A surgical time-out was taken. She was prepped and draped in a standard sterile fashion. Eleven blade was utilized to make a stab incision and infiltrated with low volume tumescent solution as a field block. Ten blade used to excise along previous scar. Dissection was continued down to the capsules identified it is an elevated above the capsule for majority of the capsule. At this point the implant and the capsule were removed. Capsule sent to pathology. I tailor tacked the breast into position. Placed her in a sitting position. Verified the nipple-areolar location based on preoperative planning as well as intraoperative observations and measurements in full agreement. She was placed supine. I de-epithelialized the pedicle. I then de-epithelialized the inferior breast tissue to create an autoaugmentation flap based on intercostal security public safety officer. I elevated medial and lateral tissue flaps as well for planned closure. The autoaugmentation flap was sutured to the chest wall with 2-0 PDS. I closed along the IMF with 2-0 Stratafix. Along the vertical with 2-0 PDS. I closed around the areola with 3-0 stratafix. 3-0 Monocryl along the vertical. 3-0 Stratafix along the IMF. I finally closed everything with running subcuticular 4-0 Monocryl and tissue glue. Brijjits were utilized for the vertical incision. Fluffs and surgical bra were placed. Estimated Blood Loss 30 Drains No Packing No Pathology Yes (Bilateral breast capsules) Complications No immediate complications Condition Stable Disposition PACU
--- NOTE | 2025-01-03 09:57 | P.PNAN_ITS ---
Anes - Initial Pre Proc Eval Procedure: Operation Date: 01/03/25 10:30 Proposed Procedures p Bilateral Breast Implant Removal, - Yan Roche MD s Bilateral Breast Mastopexy, Capsulectomy - Yan Roche MD Date/Time: 01/03/25 09:57 Surgeon: Yan Roche MD Pre Op Diagnosis: bilateral implant rupture Patient Data Age: 54 Gender: F Height: 1.57 m Weight: 57.6 kg Last Vital Signs Temp 35.8 C L 01/03/25 09:30 Pulse 57 L 01/03/25 09:30 Resp 16 01/03/25 09:30 BP 108/45 L 01/03/25 09:30 Pulse Ox 100 01/03/25 09:30 O2 Del Method Room Air 01/03/25 09:30 Allergies Allergy/AdvReac Type Severity Reaction Status Date / Time avocado Allergy Severe Hives Verified 01/02/25 13:27 latex Allergy Severe Anaphylaxis Verified 01/02/25 13:27 banana Allergy Intermediate Swelling Verified 01/02/25 13:27 of Lip/Tongue/Throat celecoxib (From Celebrex) Allergy Intermediate Hives Verified 01/02/25 13:27 kiwi Allergy Intermediate Hives Verified 01/02/25 13:27 shellfish derived Allergy Intermediate Hives Verified 01/02/25 13:27 Home Medications ?Medication ?Instructions ?Recorded ?Confirmed ?Type cholecalciferol (vitamin D3) 125 125 mcg PO DAILY 12/26/24 12/26/24 History mcg (5,000 unit) tablet (Vitamin D3) estradiol 0.1 mg/24 hr semiweekly 1 patch topical WEEKLY 12/26/24 12/26/24 History transdermal patch gabapentin 100 mg capsule See Rx Instructions .Route .COMPLEX 12/26/24 12/26/24 History lactobacillus combination no.4 3 3,000 mmu cells PO DAILY 12/26/24 12/26/24 History billion cell capsule (Probiotic) tramadol 50 mg tablet 100 mg PO BID 12/26/24 12/26/24 History vitamin B complex 1 cap PO DAILY 12/26/24 12/26/24 History zolpidem 10 mg tablet (Ambien) 10 mg PO HS PRN sleep 12/26/24 12/26/24 History Laboratory Tests 01/03/25 08:54 Cotinine Negative Patient hx anesthesia problems: none Family hx anesthesia problems: none Results Review: All pre-operative results and documents have been reviewed as part of the pre- operative evaluation. [facility], [facility] Social History Social History Years smoked: 6 Smoking status: Former smoker Tobacco type: cigarettes Smoking end date: 06/08/95 Alcohol intake: never Living arrangements: with family Spiritual care concerns: No Anes - Eval Final PreProcedure Day of Procedure 01/03/25 09:57 Patient weight: normal Heart: regular rate and rhythm Lungs: clear to auscultation Airway: Mallampati scale class II Neurological: alert and oriented Last oral intake: >/= 8 hours ASA classification: I Emergent: no Anesthetic plan: proceed Anesthesia type and monitoring: general LMA and standard monitoring Results Review: All pre-operative results and documents have been reviewed as part of the pre- operative evaluation. Informed Consent: The patient's anesthetic plan and its attendant risks and benefits were discussed with the patient/family/POA. Questions were solicited and answers provided to the satisfaction of the patient/family/POA.
--- NOTE | 2025-01-03 10:03 | W.PM.PROC2 ---
Procedure Note - Detailed Date of Procedure 01/03/25 Pre-op Diagnosis bilateral implant rupture Post-op Diagnosis Same Procedure Performed Bilateral implant removal with mastopexy Surgeon Yan Roche MD Anesthesia General Findings Inverted T Superior pedicle Old implants: bilateral ruptured Lipoaspirate: 200 cc Description of Procedure She is here today for the above. Previously and again today the risks, benefits, alternatives were discussed in extensive detail. I wanted her to be very realistic about the risks involved as well as expectations. Again today while marking we discussed the complexity of removal / mastopexy and need for revision procedures in the future. We also discussed how her previous mastopexy increases risks of complications which was outlined in detail. She has a significant IMF discrepancy which was outlined and explained the complexity of this as well. We discussed aftercare and what to monitor for. Made sure answered all of her questions to her satisfaction today and consent was obtained. Marked in the preoperative holding area with her verification. The patient was taken to the operating room placed supine on the operating table. Anesthesia was provided by anesthesiology. A surgical time-out was taken. She was prepped and draped in a standard sterile fashion. Eleven blade was utilized to make a stab incision and infiltrated with low volume tumescent solution as a field block. Ten blade used to excise along previous scar. Dissection was continued down to the capsules identified it is an elevated above the capsule for majority of the capsule. At this point the implant and the capsule were removed. Capsule sent to pathology. I irrigated with 3 liters of saline solution on TUR tubing. I tailor tacked the breast into position. Placed her in a sitting position. Verified the nipple-areolar location based on preoperative planning as well as intraoperative observations and measurements in full agreement. I utilized the superior areola for the upper areolar marking on the higher areola (no areolar elevation on that side). Suction lipectomy completed laterally with 4mm rolf cannula. This was based on preoperative planning, intraoperative observation, and rolling pinch test. She was placed supine. I de-epithelialized the pedicle. I then de-epithelialized the inferior breast tissue I closed along the IMF with 2-0 PDS. Along the vertical with 2-0 PDS. I closed around the areola with 3-0 stratafix. 3-0 Monocryl along the vertical. 3-0 Stratafix along the IMF. I finally closed everything with running subcuticular 4-0 Monocryl and tissue glue. Brijjits were utilized for the vertical incision. Fluffs and surgical bra were placed. Estimated Blood Loss 100 Drains No Packing No Pathology Yes (Bilateral breast tissue) Complications No immediate complications Condition Stable Disposition PACU
[2025-01-03] MEDS: ceFAZolin 2 GM in SODIUM CHLORIDE 0.9% IV 50 ML 100 ML IVPB (10:14)
[2025-01-03] MEDS: LACTATED RINGERS IRRIG 1,000 ML, LIDOCAINE 1% LOCAL INJ 50 ML, EPINEPHrine HCL INJ 1 MG... INFILTRATE (10:14)
[2025-01-03] MEDS: LACTATED RINGERS 1,000 ML 30 ML IV CONT ×2 (10:45→12:49)
--- NOTE | 2025-01-03 10:51 | S_PTH ---
PATIENT: Ling Olguin LOC: [facility] U#:[id number] AGE/SX: 54/F ROOM: RE01/03/[address]: Yan Roche MD : 1970 BED: DIS: 01/03/2025 SPEC #: [id number] RECD: 01/03/25 11:27 STATUS: JULIA REQ #: [id number] CHI: 01/03/25 10:[address]: Yan Roche DEPT: [facility] Surgical RECD BY: Michael Hart ENTERED: 01/03/25 11:27 SP TYPE: Surgical OTHR DR: PHYSICIAN NOT ON STAFF Tissues: A - Breast Capsule B - Breast Capsule Procedures: Hematoxylin and Eosin Stain Gross and Microscopic Level 3
[2025-01-03] MEDS: fentaNYL CITRATE INJ (*CRX) 100 MCG/2 ML VIAL 25 MCG IV PUSH ×8 (12:56→13:26)
[2025-01-03] MEDS: HYDROmorphone HCL INJ (*CRX) 1 MG/ML SYR IV PUSH ×3 (13:24→13:41)
[2025-01-03] MEDS: diazePAM INJ (*CRX) 10 MG/2 ML SYRINGE 2.5 MG IV PUSH (13:57)
[2025-01-03] MEDS: ONDANSETRON INJ 4 MG/2 ML VIAL IV PUSH (15:31)
[2025-01-03] MEDS: KETOROLAC 15 MG/ML VIAL (*BKC) IV PUSH (16:02)
== END 2025-01-03 16:57 | disposition home or self-care (01) ==
PROVIDERS: Visit Provider Surgery Plastic and Reconstructive Surgery
PROC: (CPT 19316; principal; 2025-01-03 10:30)
PROC: (CPT 19316; 2025-01-03 10:30)
DX: T85.41XA Breakdown (mechanical) of breast prosthesis and implant, initial encounter (principal); E78.00 Pure hypercholesterolemia, unspecified; M79.7 Fibromyalgia; G89.29 Other chronic pain; Y83.8 Other surgical procedures as the cause of abnormal reaction of the patient, or of later complication, without mention of misadventure at the time of the procedure; Z79.891 Long term (current) use of opiate analgesic; Z98.890 Other specified postprocedural states; Z98.1 Arthrodesis status; Z87.891 Personal history of nicotine dependence
CPT/HCPCS: 19316; 19371; 80307; 88304; J0690; A9270; J0166; J1100; J1171; J1885; J2003; J2004; J2250; J2405; J2704; J3010; J3360; J7120

== ENCOUNTER 2025-01-04 08:17 | Outpatient (CLI) | payer BC, SELFPAY ==
--- OUTSIDE RECORDS SUMMARY | 2025-01-04 08:35 | XMS_ITS | Clinical Summary ---
Author Organization [facility] Address [address] [place] [address] Care Team Providers Care Special Service Officer Name Role Phone Leif DESIR MD, Law [...] migh t be different from the original. OB-SKIP PIT WORKER Problem Noted Date Diagnosed Date Atrophic vaginitis 05/23/2021 Menopause 05/23/2021 Chronic left hip pain 01/11/2019 Chronic fatigue 12/24/2017 Chronic pelvic pain in female 06/04/2017 Overview (06/04/2017): Added automatically from request for surgery [id number] Resolved Problems Problem Noted Date Diagnosed Date Resolved Date Preop examination 10/27/2018 11/24/2018 Menopausal symptom 08/11/2018 5 Women's annual routine gynec ological examination 12/24/2017 08/11/2018 Ovarian mass 06/04/2017 09/13/2018 Overview (06/04/2017): Added automatically from request for surgery [id number] Pelvic adhesions 06/04/2017 11/24/2018 Overview (06/04/2017): Added automatically from request for surgery [id number] Pelvic pain in female 05/18/20172018 Encounters Date Type Department Care Team Description 12/21/2024 External Device Data ST[facility] ABSTRACTION Provider, Abstract 12/21/2024 Telephone [facility] Clinical Support [address] [place] [phone] Charley Liz, fence post cutter Question 12/20/2024 External Device Data [facility] ABSTRACTION Provider, Abstract 12/07/2024 Abstract [facility] PHOTOGRAPHY COLORIST - [address] [facility] [address] [facility] [address] [place] [phone] Yusra Duke MD 11/28/2024 9:23 AM CDT - 11/28/2024 11:59 PM CDT Hospital Encounter [facility], [facility] [place] [address] [place] [phone] Yusra Duke MD Discharge Disposition: Home or Self Care 11/28/2024 Results Follow-Up [facility] Clinical Support [id number] [place] [address] [address] [place] [phone] Manda Brito, BERNARD MAMMO 3D EFRAIN DIAGNOSTIC IMPL BILAT W OR WO CAD 11/22/2024 External Device Data [facility] ABSTRACTION Provider, Abstract 11/21/2024 Telephone [facility] Clinical Support [address] [facility] [address] [place] [phone] Yadira Bryant RN Needs Orders Written; Breast pain 11/08/2024 External Device Data [facility] ABSTRACTION Provider, Abstract 11/07/2024 9:40 AM CDT Office Visit [facility] PHOTOGRAPHY COLORIST - [address] [facility] [address] 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 DICTATION LOCATION: [facility] Narrative 11/28/2024 10:11 AM CDT BILATERAL [...] Ron DO - 12/19/2020 7:53 AM CDT [facility] Endoscopy Patient Name: Ling Olguin Procedure [...] of Addenda: [address]; [place] [address] Linh Ron DO GI PROCEDURE ORDERABLES Fin al Result from Last 3 Months or Most Recently Relevant to Health Maintenance Insurance BCBS OUT OF STATE Advance Directives For more information, please contact: [phone] * Full Code (Latest Code Status on File) Date Activated Date Inactivated Comments 12/19/2020 7:06 AM 12/19/2020 10:22 AM Care Teams Special Service Officer Relationship Specialty Start Date End Date Law Yadav II, MD [address] [place] [address] PCP - General Family Practice 09/13/18
--- OUTSIDE RECORDS SUMMARY | 2025-01-04 08:35 | XMS_ITS ---
Author Name Auto Generated, Auto Generated Organization [facility] ice Address [address] [place] [address] Phone [phone] Care Team Providers Care Director Of Land Acquisition Name Role Phone Lorie Doyle Unavailable [phone] Fan Anglin Unavailable [phone] Functional Status No Results Mental Status No [...] Intravenous 2 Times Daily for 1 Day [facility] 16:00:00 EDT 2017 Sep 12 :00:00 EDT 2017 Pepcid 20 mg tablet 1 tablet TABLET Oral 2 Times Daily for 1 Day acid reflux [facility] 16:00:00 EDT 2017 Sep 12 :00:00 EDT 2017 Tylenol Extra Strength 500 mg tablet 2 tabs TABLET Oral PRN Every 6 Hours elevated temp [facility] 16:00:00 EDT 2017 [facility] Sep 12 :00:00 EDT 2017 Benadryl 25 mg capsule 2 tabs CAPSULE Or al PRN Every 6 Hours as needed for itching. [facility] 16:00:00 EDT 2017 Sep 12 :00:00 EDT 2017 Zofran 2 mg/mL intravenous solution 4mg VIAL (ML) Intravenous PRN Every 4 Hours nausea [facility] 16:00:00 EDT 2017 [facility] Sep 12 :00:00 EDT 2017 Flexeril 10 mg tablet 1 tab TABLET Oral PRN 3 Times Daily spasms [facility] 16:00:00 EDT 2017 [facility] Sep 12 :00:00 EDT 2017 Milk of Magnesia 400 mg/5 mL oral suspension 30cc SUSPENSION, ORAL (FINAL DOSE FORM) Oral PRN Hour Of Sleep constipation [facility] 16:00:00 EDT 2017 [facility] Sep 12 :00:00 EDT 2017 Problems Active Concerns * Encounter for other orthopedic aftercare* Code: * Start Date: ThuFeb 16:00:00 EDT 2017 * End Date: * Text: * Low back pain* Code: * Start Date: ThuFeb 16:00:00 EDT 2017 * End Date: * Text: Reason for Referral Past Medical History
--- OUTSIDE RECORDS SUMMARY | 2025-01-04 08:35 | XMS_ITS | Clinical Summary ---
Author Organization [facility] Address [address] [place] [address] Phone Care Team Providers Care Gas Fitter Apprentice Name Role Phone Leif Parker Unavailable [phone] Lief Parker Primary Care Provider Allergies Active Allergy [...] AM CDT Urgent Care [facility] [address] [place] [address] Jaycob Isabel, LARISSA Acute maxillary sinusitis, recurrence not specified (Primary Dx) Discharge Disposition: Discharged to home or Selfcare 10/26/2024 Travel from Last 3 Months Immunizations Immunization Administration Dates Next Due Influenza Vaccine greater than 3 yrs 03/23/2019 Influenza Vaccine, Quadrivalent, PF 03/29/2019 Influenza, Recombinant, Quadrivalent,injectable, Pf 03/30/2020 Influenza, Seasonal, Injectable, Undefined 04/08 Novel [id number], Injectable 04/04/2009 Td Vaccine (preservative free) 11/20/2023,2008 [...] this topic Medical Devices Implanted Type Area Superintendent Pressure Device Identifier Shelf Expiration Date Model / Serial / Lot Device Clsr 70cm 6fr Angio-Seal Vip .035in Vasc Collagen Valuelink Gw Insertion Timo Cm - [id number] Implanted:Qty: 1 on 08/04/2022 by Diane Rabago MD at [facility] IMPLANT [employer] 01/05/2023 [id number] / [id number] / [id number] Insurance * Guarantor: Ling Olguin Account Type Relation to Patient Date of Phone Billing Address Personal/Family Self 1970 [id number] [place] [address] [facility] * Guarantor: Ling Olguin Account Type Relation to Patient Date of Phone Billing Address Personal/Family Self 1970 [address] [place] [address] Advance Directives * Full Code (Latest Code Status on File) Date Activated Date Inactivated Comments 08/01/2022 7:20 PM 08/04/2022 8:23 PM CPR-Full Prince atment: FULL ARREST: Attempt Resuscitation/CPR wit intubation and mechanical ventilation. PRE-ARREST: Use entire range of life support measures to stabilize the patient. Care Teams Gas Fitter Apprentice Relationship Specialty [place] [address] [place] [address] PCP - General Physician Air Carrier Maintenance Inspector 06/12/22 [place] [address] [place] [address] Physician Air Carrier Maintenance Inspector 04/30/18
--- OUTSIDE RECORDS SUMMARY | 2025-01-04 08:35 | XMS_ITS | Clinical Summary ---
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 Gender Identity Female 06/18/2020 7:08 PM TRACTOR MECHANIC APPRENTICE Sexual Orientation Not on file Obstetrics History [...] patient's age to complete this topic Insurance [facility] * Guarantor: Ling Olguin Account Type Relation to Patient Date of Phone Billing Address Personal/Family Self 1970 [id number] [place] [address] [facility] * Guarantor: Ling Olguin Account Type Relation to Patient Date of Phone Billing Address Personal/Family Self 1970 [id number] [place] [address] [facility] Care Teams Risk Control Analyst Relationship Specialty Start Date End Date Law Yadav II, MD [address] [place] [address] PCP - General 11/27/18
--- OUTSIDE RECORDS SUMMARY | 2025-01-04 08:35 | XMS_ITS ---
Author Name Auto Generated, Auto Generated Organization [facility] ice Address [address] [place] [address] Phone [phone] Care Team Providers Care Geological Scout Name Role Phone Lorie Doyle Unavailable Fan Anglin Unavailable [phone] Functional Status No Results Mental Status No [...] Intravenous 2 Times Daily for 1 Day [facility] 16:00:00 EDT 2017 Sep 12 :00:00 EDT 2017 Pepcid 20 mg tablet 1 tablet TABLET Oral 2 Times Daily for 1 Day acid reflux [facility] 16:00:00 EDT 2017 Sep 12 :00:00 EDT 2017 Tylenol Extra Strength 500 mg tablet 2 tabs TABLET Oral PRN Every 6 Hours elevated temp [facility] 16:00:00 EDT 2017 [facility] Sep 12 :00:00 EDT 2017 Benadryl 25 mg capsule 2 tabs CAPSULE Or al PRN Every 6 Hours as needed for itching. [facility] 16:00:00 EDT 2017 Sep 12 :00:00 EDT 2017 Zofran 2 mg/mL intravenous solution 4mg VIAL (ML) Intravenous PRN Every 4 Hours nausea [facility] 16:00:00 EDT 2017 [facility] Sep 12 :00:00 EDT 2017 Flexeril 10 mg tablet 1 tab TABLET Oral PRN 3 Times Daily spasms [facility] 16:00:00 EDT 2017 [facility] Sep 12 :00:00 EDT 2017 Milk of Magnesia 400 mg/5 mL oral suspension 30cc SUSPENSION, ORAL (FINAL DOSE FORM) Oral PRN Hour Of Sleep constipation [facility] 16:00:00 EDT 2017 [facility] Sep 12 :00:00 EDT 2017 Problems Active Concerns * Encounter for other orthopedic aftercare* Code: * Start Date: ThuFeb 16:00:00 EDT 2017 * End Date: * Text: * Low back pain* Code: * Start Date: ThuFeb 16:00:00 EDT 2017 * End Date: * Text: Reason for Referral Past Medical History
--- OUTSIDE RECORDS SUMMARY | 2025-01-04 08:35 | XMS_ITS | Encounter Summary ---
Author Organization [facility] Address [address] [place] [address] Care Team Providers Care Computer Discovery Teacher Name Role Phone Leif DESIR MD, Law White Primary Care Provider + Encounter Details Date Type Department Care Team (Late st Contact Info) Description 11/28/2024 Results Follow-Up [facility] Women's Health Clinical Support [address] 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
--- OUTSIDE RECORDS SUMMARY | 2025-01-04 08:35 | XMS_ITS | Clinical Summary ---
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 This disclosure is being madepursuant to the Care Everywhere program and may not contain all information available regarding this patient. Last updated 18.[facility] [employer] Allergies Active Allergy Reactions Criticality Noted Date [...] (03/09/2024): Added automatically from request for surgery [id number] IMO Replacement Utility 03/09/2024 Chronic back pain 09/23/2018 11/05/2022 Overview (11/05/2022): Chronic low back pain with fusion at 2 levels 7 months ago. Has completed physical therapy. Appears to be complicated by chronic pelvic pain and possible adhesions. Last Assessment & Plan: Keep appointment with shell machine operator and with neurosurgeon. Recommended a walking program. 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
--- OUTSIDE RECORDS SUMMARY | 2025-01-04 08:35 | XMS_ITS | Referral Summary ---
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 Gender Identity Female 06/18/2020 7:08 PM MANAGER APPOINTMENT Sexual Orientation Not on file Last Filed [...] of Phone Billing Address Personal/Family Self 1970 [id number] [place] [address] [facility] * Guarantor: Sharif Ling Woo Account Type Relation to Patient Date of Phone Billing Address Personal/Family Self 1970 [id number] [place] [address] [facility] * Guarantor: Rosa Olguinleroy Woo Account Type Relation to Patient Date of Phone Billing Address Personal/Family Self 1970 [id number] [place] [address] Care Teams Lavatory Attendant Relationship Specialty Start Date End Date Law Yadav II, MD [address] [place] [address] PCP - General 11/27/18
[2025-01-04 08:47] LABS: Hematocrit 32.2 % (37.0-47.0); Hemoglobin 10.4 g/dL (12.0-15.0); Immature Granulocyte Percent A 0.3 % (0-0.5); Lymphocytes Absolute Auto 2.60 K/mm3 (0.9-3.2); Mean Corpuscular HGB Conc 32.3 g/dl (32-36); Mean Corpuscular Hemoglobin 28.3 pg (26-34); Mean Corpuscular Volume 87.5 fl (80-100); Nucleated Red Blood Cells Absolute Auto 0.000 K/mm3 (0.0-0.012); Nucleated Red Blood Cells Perc 0.0 % (0.0-0.2); Platelet Count Result 272 k/mm3 (150-375); Red Blood Count 3.68 M/mm3 (4.2-5.4); White Blood Count 11.8 K/mm3 (4.5-10.0)
[2025-01-04 09:13] LABS: INR 1.0; Partial Thromboplastin Time 27.4 Seconds (22.3-36.8); Prothrombin Time 13.3 Seconds (11.1-14.7)
[2025-01-04 09:36] LABS: Anion Gap 1 mmol/L (4-12); Blood Urea Nitrogen 9 mg/dL (7-17); Calcium 9.2 mg/dL (8.4-10.2); Carbon Dioxide 31 mmol/L (22-30); Chloride 103 mmol/L (98-107); Estimated Glomerular Filt Rate > 60; Glucose 89 mg/dL (65-110); Potassium 4.0 mmol/L (3.4-5.0); Sodium 135 mmol/L (137-145)
== END 2025-01-04 08:18 | disposition home or self-care (01) ==
PROVIDERS: Visit Provider Surgery Plastic and Reconstructive Surgery
DX: L76.22 Postprocedural hemorrhage of skin and subcutaneous tissue following other procedure (principal)
CPT/HCPCS: 36415; 80048; 85025; 85610; 85730